=== PATIENT | male | born 1965 | race Caucasian/White ===

== ENCOUNTER 2021-09-30 15:10 | Emergency (ER) | payer MEDICAID ==
[~2021-09-30] VITALS: Ht 182.9 cm; Wt 95.5 kg
[2021-09-30] MEDS ORDERED: haloperidol 5mg tablet PO ONE (17:55)
[2021-09-30] MEDS ORDERED: LORazepam 1 MG tablet PO ONE (17:55)
[2021-09-30 18:26] LABS: BASOPHILS % (AUTO) 0.2 % (0-1); EOSINOPHILS % (AUTO) 0.1 % (0-6); HEMATOCRIT 46.9 % (42.0-52.0); HEMOGLOBIN 15.7 g/dl (14.0-17.9); LYMPHOCYTES # (AUTO) 2.8 X10'3 (1.1-4.8); LYMPHOCYTES % (AUTO) 13.6 % (21-51); MEAN CORPUSCULAR HEMOGLOBIN 30.7 PG (27.0-31.0); MEAN CORPUSCULAR HGB CONC 33.4 g/dL (33.0-36.5); MEAN CORPUSCULAR VOLUME 91.9 FL (78-98); MEAN PLATELET VOLUME 8.7 FL (7.4-10.4); MONOCYTES # (AUTO) 1.3 X10'3 (0-0.9); MONOCYTES % (AUTO) 6.5 % (2-12); NEUTROPHILS # (AUTO) 16.2 X10'3 (1.8-7.7); NEUTROPHILS % (AUTO) 79.6 % (42-75); PLATELET COUNT 290 X10'3 (140-440); RED CELL DISTRIBUTION WIDTH 13.9 % (11.5-14.5); WHITE BLOOD COUNT 20.3 X10'3 (4.5-11.0)
[2021-09-30 18:33] LABS: ALANINE AMINOTRANSFERASE 45 U/L (12-78); ALBUMIN 4.5 G/DL (3.4-5.0); ALBUMIN/GLOBULIN RATIO 1.1 (1.1-1.5); ALKALINE PHOSPHATASE 77 IU/L (46-116); ANION GAP 15 (8-16); ASPARTATE AMINO TRANSFERASE 51 U/L (10-37); BILIRUBIN,TOTAL 0.6 MG/DL (0.1-1.0); BLOOD UREA NITROGEN 23 MG/DL (7-18); CALCIUM 9.3 MG/DL (8.5-10.1); CHLORIDE 107 MMOL/L (99-107); CREATININE 1.35 MG/DL (0.60-1.10); ETHANOL < 0.010 GM/DL (0.0-0.010); GLUCOSE 116 MG/DL (70-104); SODIUM 141 MMOL/L (135-145); TOTAL CARBON DIOXIDE 18.6 MMOL/L (24-32); TOTAL PROTEIN 8.6 G/DL (6.4-8.2); eGFR 55 ML/MIN
[2021-09-30 18:34] LABS: POTASSIUM 4.6 MMOL/L (3.5-5.1)
[2021-09-30] MEDS ORDERED: LORazepam 2 mg/ml vial IM ONE (19:30)
[2021-09-30 19:37] LABS: CLARITY,URINE CLEAR (Clear); COLOR,URINE YELLOW (Yellow); GLUCOSE, URINE NEGATIVE (Neg); KETONES,URINE 15 mg/dl (Neg); LEUKOCYTE ESTERASE ,URINE NEGATIVE (Neg); NITRITES, URINE NEGATIVE (Neg); OCCULT BLOOD,URINE SMALL (Neg); PH,URINE 5.5 (4.8-8.0); PROTEIN,URINE 30 mg/dl (Neg); UROBILINOGEN,URINE 0.2 E.U/dL (0.2-1.0)
[2021-09-30 19:42] LABS: UA COLLECTION TYPE URINAL
[2021-09-30 19:43] LABS: URINE AMPHETAMINE SCREEN POSITIVE (Neg); URINE BARBITUATE SCREEN NEGATIVE (Neg); URINE BENZODIAZEPINES SCREEN NEGATIVE (Neg); URINE CANNABINOID SCREEN NEGATIVE (Neg); URINE COCAINE SCREEN NEGATIVE (Neg); URINE METHADONE SCREEN NEGATIVE (Neg); URINE OPIATE SCREEN NEGATIVE (Neg); URINE PHENCYCLIDINE SCREEN NEGATIVE (Neg)
[2021-09-30 19:45] LABS: BACTERIA,URINE FEW /HPF (Neg); MUCUS STRANDS FEW /LPF (Neg); RBC,URINE 0-2 /HPF (0-2); SQUAMOUS EPITHELIAL CELL,UR FEW /LPF (FEW); WBC,URINE 0-4 /HPF (0-4)
--- NOTE | 2021-09-30 21:04 | NUR ---
The patient was moved to bed 23 from the main ER. He is sedated and unable to give a history.
--- NOTE | 2021-09-30 21:05 | NUR ---
PATIENT'S GIRLFRIEND, NAYELY SAAB [phone]
[2021-09-30] MEDS ORDERED: SERT-153 PO (21:09)
[2021-09-30] MEDS ORDERED: CELE-193 PO (21:09)
[2021-09-30] MEDS ORDERED: PALI9TAB PO (21:09)
[2021-09-30] MEDS ORDERED: ABAC1TAB14 PO (21:09)
--- NOTE | 2021-09-30 21:31 | NUR ---
Per the patient's girlfriend he has Schizoaffective disorder and has had prior inpatient psychiatric admissions
--- NOTE | 2021-09-30 21:50 | NUR ---
The patient appears to be sleeping. Continuous pulse ox on patient. 02 sats 96% on room air
--- NOTE | 2021-09-30 22:01 | NUR ---
PACKET SENT TO [facility]
--- NOTE | 2021-09-30 23:56 | NUR ---
The patient appears to be sleeping
--- NOTE | 2021-10-01 01:38 | NUR ---
The patient appears to be sleeping
--- NOTE | 2021-10-01 03:00 | NUR ---
The patient appears to be sleeping
--- NOTE | 2021-10-01 04:49 | NUR ---
The patient appears to be sleeping
--- NOTE | 2021-10-01 04:55 | NUR ---
The patient ambulated to the bathroom
--- NOTE | 2021-10-01 07:51 | NUR ---
Harmony Wood (Pt.'s ) called with information. She lives in [place] and cannot live with pt. after he began to use crack 6 years ago. Pt.'s reports that current girlfriend supplies pt. with drugs. 's phone number is [phone]
--- NOTE | 2021-10-01 08:00 | NUR ---
Pt. asleep in supine position.
[2021-10-01] MEDS: sertraline 50mg tablet PO SCH (08:17)
[2021-10-01] MEDS: PALIPERIDONE 3 MG TAB.ER.24 PO SCH (08:17)
[2021-10-01] MEDS: celeCOXIB 100mg capsule PO SCH (08:23)
--- NOTE | 2021-10-01 09:00 | NUR ---
Pt. awake and eating breakfast. Pt. took all medications. RN encouraged pt. to call home to have girlfriend bring HIV medication. 1:1 done at bedside, pt. is tearful, states, "I really screwed up this time". Pt. denies SI/HI, reports hearing voices that harrass him, reports seeing shadows out of the corner of his eyes.
--- NOTE | 2021-10-01 11:00 | NUR ---
Pt. asleep in bed in supine position. Respirations 16, normal rate and rhythm noted.
--- NOTE | 2021-10-01 13:00 | NUR ---
Pt. ate lunch and is now sleeping in supine position. Respirations 16, normal rate and rhythm observed. Pt. in no apparent distress.
--- NOTE | 2021-10-01 15:00 | NUR ---
Pt. asleep in bed in supine position. Respirations 16, even and unlabored.
--- NOTE | 2021-10-01 17:00 | NUR ---
Pt. asleep in supine position. Respirations 18, even and unlabored.
--- NOTE | 2021-10-01 17:46 | NUR ---
Pt. got up and used the bathroom. Pt. reports normal void.
--- NOTE | 2021-10-01 18:39 | NUR ---
Report to Conner Carroll
[2021-10-01 20:49] LABS: BASOPHILS # (AUTO) 0.1 X10'3 (0-0.2); BASOPHILS % (AUTO) 0.6 % (0-1); EOSINOPHILS # (AUTO) 0.2 X10'3 (0-0.9); EOSINOPHILS % (AUTO) 2.3 % (0-6); HEMATOCRIT 40.6 % (42.0-52.0); LYMPHOCYTES # (AUTO) 3.8 X10'3 (1.1-4.8); LYMPHOCYTES % (AUTO) 44.1 % (21-51); MEAN CORPUSCULAR HEMOGLOBIN 31.1 PG (27.0-31.0); MEAN CORPUSCULAR HGB CONC 34.5 g/dL (33.0-36.5); MEAN PLATELET VOLUME 8.2 FL (7.4-10.4); MONOCYTES # (AUTO) 0.8 X10'3 (0-0.9); MONOCYTES % (AUTO) 8.9 % (2-12); NEUTROPHILS # (AUTO) 3.8 X10'3 (1.8-7.7); NEUTROPHILS % (AUTO) 44.1 % (42-75); PLATELET COUNT 239 X10'3 (140-440); RED BLOOD COUNT 4.51 X10'6 (4.70-6.10); RED CELL DISTRIBUTION WIDTH 13.3 % (11.5-14.5); WHITE BLOOD COUNT 8.7 X10'3 (4.5-11.0)
--- NOTE | 2021-10-01 21:17 | NUR ---
The patient has been sleeping soundly since change of shift. He did awaken briefly to eat some of his dinner. CBC repeated.
--- NOTE | 2021-10-01 22:07 | NUR ---
The patient appears to be sleeping
--- NOTE | 2021-10-01 22:21 | NUR ---
Report to Saran Carroll.
--- NOTE | 2021-10-01 23:58 | NUR ---
The patient apparst o be sleeping
--- NOTE | 2021-10-02 00:55 | NUR ---
The patient appears to be sleeping
--- NOTE | 2021-10-02 03:08 | NUR ---
The patient appears to be sleeping
--- NOTE | 2021-10-02 04:43 | NUR ---
THe patient awake to use the bathroom and is agitated about being here. Stated he doesn't want to go to a psychiatric hospistal and if he is made to he stated, "I'll jayla this [facility]"
[2021-10-02 05:20] VITALS: BP 132/74
--- NOTE | 2021-10-02 05:37 | NUR ---
The patient is currently sleeping on his bed.
--- NOTE | 2021-10-02 06:38 | NUR ---
Patient accepted to [facility] at 0620. Will need to send TSH To [facility] office prior to leaving.
--- NOTE | 2021-10-02 07:59 | NUR ---
[facility] ATTEMPTED TO GET [facility] OF PT GIRLFRIEND AND CALLED PT PHONE. BOTH CALLS WENT UNANSWERED. PT NOTIFIED THAT THEY CAN TRY TO CALL AGAIN LATER.
[2021-10-02] MEDS ORDERED: ABAC1TAB14 PO (08:08)
--- NOTE | 2021-10-02 08:24 | NUR ---
PT COVID RESULTS FAXED TO THE [facility].
--- NOTE | 2021-10-02 09:39 | NUR ---
[facility] FAXED TSH RESULTS TO [facility]ICE.
--- NOTE | 2021-10-02 09:46 | NUR ---
Kalia's girlfriend called and said she would bring his meds.
[2021-10-02] MEDS: sertraline 50mg tablet PO SCH (10:02)
[2021-10-02] MEDS: celeCOXIB 100mg capsule PO SCH (10:02)
[2021-10-02] MEDS: PALIPERIDONE 3 MG TAB.ER.24 PO SCH (10:02)
--- NOTE | 2021-10-02 10:19 | NUR ---
Patient relaxing on his bed with eyes closed. No s/sx of distress.
--- NOTE | 2021-10-02 11:22 | NUR ---
Patient's girlfriend dropped off his medications in a brown backpack. Patient grabbed it and decided he was leaving, taking a swing at myself, but missing. Security was called and they brought him back to his bed. Patient would not stop fighting security, so he was put in restraints.
--- NOTE | 2021-10-02 12:10 | NUR ---
patient removed from restraints at this time
--- NOTE | 2021-10-02 12:11 | NUR ---
note above charted by Ang WOLFE
--- NOTE | 2021-10-02 12:41 | NUR ---
Patient now calm and relaxing on his bed. No s/sx of distress
--- NOTE | 2021-10-02 13:32 | NUR ---
Patient appears to be sleeping.
== END 2021-10-02 14:15 ==
LOC: ER 15:11
DX: F29 Unspecified psychosis not due to a substance or known physiological condition (principal); Z20.822 Contact with and (suspected) exposure to COVID-19
CPT/HCPCS: 36415; 80053; 80305; 80320; 81001; 84443; 85025; 87635; 99285; C9803; J2060

== ENCOUNTER 2021-10-24 05:44 | Emergency (ER) | payer MEDICAID ==
[~2021-10-24 05:44] MED LIST: ABAC1TAB14 PO; CELE-193 PO; PALI9TAB PO; SERT-153 PO
== END 2021-10-24 06:26 | disposition left against medical advice (07) ==
LOC: ER 05:45
DX: Z53.21 Procedure and treatment not carried out due to patient leaving prior to being seen by health care provider

== ENCOUNTER 2021-10-27 12:44 | Emergency (ER) | payer MEDICAID ==
[~2021-10-27] VITALS: Ht 175.3 cm; Wt 90.9 kg
[2021-10-27 13:03] VITALS: BP 113/66
[2021-10-27] MEDS ORDERED: AMOX-117 PO (14:22)
== END 2021-10-27 14:41 | disposition home or self-care (01) ==
LOC: ER 12:45
DX: H66.92 Otitis media, unspecified, left ear (principal)
CPT/HCPCS: 99283

== ENCOUNTER 2021-12-12 13:36 | Emergency (ER) | payer MEDICARE, MEDICAID ==
[~2021-12-12] VITALS: Ht 180.3 cm; Wt 84.1 kg
[2021-12-12] MEDS ORDERED: ringers solution, lacted 1,000 ML IV ONE (14:40)
--- NOTE | 2021-12-12 14:55 | NUR ---
TO CT VIA [facility]
[2021-12-12 15:04] LABS: BASOPHILS # (AUTO) 0.1 X10'3 (0-0.2); BASOPHILS % (AUTO) 0.4 % (0-1); EOSINOPHILS # (AUTO) 0.1 X10'3 (0-0.9); EOSINOPHILS % (AUTO) 0.4 % (0-6); HEMATOCRIT 39.7 % (42.0-52.0); HEMOGLOBIN 13.6 g/dl (14.0-17.9); LYMPHOCYTES % (AUTO) 13.3 % (21-51); MEAN CORPUSCULAR HEMOGLOBIN 30.7 PG (27.0-31.0); MEAN CORPUSCULAR HGB CONC 34.3 g/dL (33.0-36.5); MEAN CORPUSCULAR VOLUME 89.4 FL (78-98); MEAN PLATELET VOLUME 8.3 FL (7.4-10.4); MONOCYTES % (AUTO) 6.8 % (2-12); NEUTROPHILS # (AUTO) 11.9 X10'3 (1.8-7.7); NEUTROPHILS % (AUTO) 79.1 % (42-75); PLATELET COUNT 303 X10'3 (140-440); RED BLOOD COUNT 4.45 X10'6 (4.70-6.10); RED CELL DISTRIBUTION WIDTH 12.8 % (11.5-14.5); WHITE BLOOD COUNT 15.1 X10'3 (4.5-11.0)
[2021-12-12 15:17] LABS: ALANINE AMINOTRANSFERASE 32 U/L (12-78); ALBUMIN 3.4 G/DL (3.4-5.0); ALBUMIN/GLOBULIN RATIO 0.8 (1.1-1.5); ALKALINE PHOSPHATASE 82 IU/L (46-116); ANION GAP 12 (8-16); ASPARTATE AMINO TRANSFERASE 37 U/L (10-37); BILIRUBIN,TOTAL 0.6 MG/DL (0.1-1.0); BLOOD UREA NITROGEN 13 MG/DL (7-18); BUN/CREATININE RATIO 11.4 (5.4-32.0); CALCIUM 9.1 MG/DL (8.5-10.1); CHLORIDE 106 MMOL/L (99-107); CREATININE 1.14 MG/DL (0.60-1.10); GLUCOSE 109 MG/DL (70-104); POTASSIUM 3.4 MMOL/L (3.5-5.1); SODIUM 144 MMOL/L (135-145); TOTAL CARBON DIOXIDE 25.8 MMOL/L (24-32); TOTAL PROTEIN 7.8 G/DL (6.4-8.2); eGFR 67 ML/MIN
[2021-12-12 15:30] LABS: ACETAMINOPHEN < 2.0 UG/ML (10-30); ETHANOL < 0.010 GM/DL (0.0-0.010)
[2021-12-12 16:16] LABS: CLARITY,URINE CLOUDY (Clear)
[2021-12-12 16:18] LABS: COLOR,URINE AMBER (Yellow); UA COLLECTION TYPE STRAIGHT CATH
[2021-12-12 16:22] LABS: AMORPHOUS URATES 2+; BACTERIA,URINE FEW /HPF (Neg); HYALINE CASTS 0-3 /LPF (NEGATIVE); MUCUS STRANDS FEW /LPF (Neg); SQUAMOUS EPITHELIAL CELL,UR NONE SEEN /LPF (FEW)
[2021-12-12 16:38] LABS: URINE AMPHETAMINE SCREEN POSITIVE (Neg); URINE BARBITUATE SCREEN NEGATIVE (Neg); URINE BENZODIAZEPINES SCREEN POSITIVE (Neg); URINE CANNABINOID SCREEN POSITIVE (Neg); URINE COCAINE SCREEN NEGATIVE (Neg); URINE METHADONE SCREEN NEGATIVE (Neg); URINE OPIATE SCREEN NEGATIVE (Neg); URINE PHENCYCLIDINE SCREEN NEGATIVE (Neg)
[2021-12-12 19:41] VITALS: BP 118/68
== END 2021-12-12 19:43 | disposition home or self-care (01) ==
LOC: ER 13:36
DX: F15.10 Other stimulant abuse, uncomplicated (principal); F12.90 Cannabis use, unspecified, uncomplicated; Z20.9 Contact with and (suspected) exposure to unspecified communicable disease; Z79.899 Other long term (current) drug therapy; R41.82 Altered mental status, unspecified
CPT/HCPCS: 36415; 70450; 71045; 74176; 80053; 80305; 80320; 80329; 81001; 83605; 84443; 85025; 96360; 99285; J7120

== ENCOUNTER 2022-01-22 04:35 | Emergency (ER) | payer MEDICARE, MEDICAID ==
[~2022-01-22] VITALS: Ht 175.3 cm; Wt 86.4 kg
[2022-01-22] MEDS ORDERED: LIDOcaine 1% W/epiNEPHrine 1:100,000 20ml vial SQ ONE (06:15)
[2022-01-22] MEDS ORDERED: LIDOcaine 1% w/EPI 1:100,000 30ml vial (MDV) IJ ONE (06:20)
[2022-01-22 06:37] LABS: ALANINE AMINOTRANSFERASE 30 U/L (12-78); ALBUMIN 3.1 G/DL (3.4-5.0); ALBUMIN/GLOBULIN RATIO 0.8 (1.1-1.5); ALKALINE PHOSPHATASE 73 IU/L (46-116); ANION GAP 6 (8-16); ASPARTATE AMINO TRANSFERASE 26 U/L (10-37); BILIRUBIN,TOTAL 0.4 MG/DL (0.1-1.0); BLOOD UREA NITROGEN 9 MG/DL (7-18); BUN/CREATININE RATIO 12.5 (5.4-32.0); CALCIUM 8.7 MG/DL (8.5-10.1); CHLORIDE 107 MMOL/L (99-107); CREATININE 0.72 MG/DL (0.60-1.10); GLUCOSE 104 MG/DL (70-104); POTASSIUM 3.3 MMOL/L (3.5-5.1); SODIUM 139 MMOL/L (135-145); TOTAL CARBON DIOXIDE 26.2 MMOL/L (24-32); TOTAL PROTEIN 6.8 G/DL (6.4-8.2); eGFR > 90 ML/MIN
[2022-01-22 06:42] LABS: BASOPHILS # (AUTO) 0.1 X10'3 (0-0.2); BASOPHILS % (AUTO) 0.7 % (0-1); EOSINOPHILS # (AUTO) 0.2 X10'3 (0-0.9); EOSINOPHILS % (AUTO) 2.5 % (0-6); HEMOGLOBIN 12.5 g/dl (14.0-17.9); LYMPHOCYTES # (AUTO) 2.7 X10'3 (1.1-4.8); LYMPHOCYTES % (AUTO) 28.4 % (21-51); MEAN CORPUSCULAR HEMOGLOBIN 30.5 PG (27.0-31.0); MEAN CORPUSCULAR HGB CONC 33.7 g/dL (33.0-36.5); MEAN CORPUSCULAR VOLUME 90.5 FL (78-98); MEAN PLATELET VOLUME 8.6 FL (7.4-10.4); MONOCYTES # (AUTO) 0.7 X10'3 (0-0.9); MONOCYTES % (AUTO) 7.9 % (2-12); NEUTROPHILS # (AUTO) 5.8 X10'3 (1.8-7.7); NEUTROPHILS % (AUTO) 60.5 % (42-75); PLATELET COUNT 268 X10'3 (140-440); RED BLOOD COUNT 4.09 X10'6 (4.70-6.10); RED CELL DISTRIBUTION WIDTH 13.6 % (11.5-14.5); WHITE BLOOD COUNT 9.5 X10'3 (4.5-11.0)
[2022-01-22] MEDS ORDERED: doxycycline inj 200 MG in normal saline 250ml IV soln 250 ML IV ONE (07:00)
[2022-01-22] MEDS ORDERED: acetaminophen 325mg tablet PO ONE (07:05)
[2022-01-22] MEDS ORDERED: LIDOcaine 1% w/EPI 1:100,000 30ml vial (MDV) SQ ONE (07:15)
[2022-01-22] MEDS ORDERED: DOXYCYCLINE 100 MG in NORMAL SALINE 100ml IV.SOLN IV ONE (07:25)
[2022-01-22] MEDS ORDERED: bacitracin 15gm ointment TP ONE (07:45)
[2022-01-22] MEDS ORDERED: DOXY100C76 PO (07:59)
[2022-01-22 10:29] VITALS: BP 154/92
== END 2022-01-22 10:30 | disposition home or self-care (01) ==
LOC: ER 04:37
DX: L02.211 Cutaneous abscess of abdominal wall (principal); F17.200 Nicotine dependence, unspecified, uncomplicated; F20.9 Schizophrenia, unspecified; F15.10 Other stimulant abuse, uncomplicated; Z79.899 Other long term (current) drug therapy
CPT/HCPCS: 10060; 36415; 80053; 85025; 87070; 87075; 87077; 87186; 96365; 96366; 99284; J3490; J7030; A6449